=== PATIENT | female | born 1995 | race American Indian/Alaskan Native ===

== ENCOUNTER 2021-07-04 20:56 | Emergency (ER) | payer BC ==
[2021-07-04 22:05] VITALS: BP 142/85
--- NOTE | 2021-07-04 22:05 | Emergency Department Report ---
ED General Adult HPI - General Stated complaint: THROAT PAIN/SOB Time Seen by Provider: 07/04/21 22:01 - History of Present Illness Initial comments: 25-year-old -Indian female patient presents with complaints of sore throat x3 days. Patient states she has been having swollen tonsils for about 2 years in has been getting recurrent throat infections. Last infection was 3 months ago and was treated with Amoxil which did resolve the infection at that time per patient. She rates her current pain as a 8/10 in severity. No cough, chest pain, or rash per patient. NKDA per patient. - Related Data Previous Rx's Medication Instructions Recorded Last Taken Type Azithromycin [Zithromax Z-LEX] 0 mg PO DAILY #6 tab 07/04/21 Unknown Rx Ibuprofen [Motrin 800 MG tab] 800 mg PO Q8HR PRN #20 tablet 07/04/21 Unknown Rx predniSONE [Deltasone] 20 mg PO BID 2 Days #4 tab 07/04/21 Unknown Rx ED Review of Systems ROS: Stated complaint: THROAT PAIN/SOB Other details as noted in HPI Constitutional: denies: chills, diaphoresis, fever, malaise, weakness ENT: throat pain. denies: dental pain Respiratory: denies: cough, shortness of breath Skin: denies: rash, lesions, change in color ED Past Medical Hx - Medications Home Medications: Home Medications Medication Instructions Recorded Confirmed Last Taken Type Azithromycin [Zithromax Z-LEX] 0 mg PO DAILY #6 tab 07/04/21 Unknown Rx Ibuprofen [Motrin 800 MG tab] 800 mg PO Q8HR PRN #20 tablet 07/04/21 Unknown Rx predniSONE [Deltasone] 20 mg PO BID 2 Days #4 tab 07/04/21 Unknown Rx ED Physical Exam - General General appearance: alert, in no apparent distress, obese - Head Head exam: Present: atraumatic, normocephalic - Eye Eye exam: Present: normal appearance - Expanded ENT Exam Expanded Mouth exam: Absent: drooling, trismus, muffled voice Throat exam: Positive: tonsillar erythema (Bilateral), tonsillomegaly (Bilateral), tonsillar exudate (Bilateral), other (Uvula is midline). Negative: R peritonsillar mass, L peritonsillar mass - Neck Neck exam: Present: full ROM, lymphadenopathy (Mild anterior cervical) - Respiratory Respiratory exam: Present: normal lung sounds bilaterally. Absent: respiratory distress - Cardiovascular Cardiovascular Exam: Present: regular rate, normal rhythm - Neurological Exam Neurological exam: Present: alert, oriented X3 - Psychiatric Psychiatric exam: Present: normal affect, normal mood - Skin Skin exam: Present: warm, dry, intact, normal color. Absent: rash ED Medical Decision Making - Medical Decision Making 25-year-old -Indian female patient presents with complaints of sore throat x3 days. Patient states she has been having swollen tonsils for about 2 years in has been getting recurrent throat infections. Last infection was 3 months ago and was treated with Amoxil which did resolve the infection at that time per patient. She rates her current pain as a 8/10 in severity. No cough, chest pain, or rash per patient. NKDA per patient. Will treat for tonsillitis with azithromycin given recent use of Amoxil. Recommend follow-up with ENT, referral provided. She is otherwise well- appearing, her vitals are within normal limits, she is stable for discharge home. Discussed in detail signs and symptoms that should prompt immediate r eturn to the ED with patient who verbalizes understanding Critical care attestation.: If time is entered above; I have spent that time in minutes in the direct care of this critically ill patient, excluding procedure time. ED Disposition Clinical Impression: Acute tonsillitis Disposition: 01 HOME / SELF CARE / HOMELESS Is pt being admited?: No Condition: Stable Instructions: Tonsillitis Prescriptions: predniSONE [Deltasone] 20 mg PO BID 2 Days #4 tab Ibuprofen [Motrin 800 MG tab] 800 mg PO Q8HR PRN #20 tablet PRN Reason: pain Azithromycin [Zithromax Z-LEX] 0 mg PO DAILY #6 tab Referrals: ANNIE DAO MD [Staff Physician] - 3-5 Days Forms: Work/School Release Form(ED)
== END 2021-07-04 22:54 | disposition home or self-care (01) ==
LOC: ED 20:56
DX: J03.90 Acute tonsillitis, unspecified (principal)
CPT/HCPCS: 99282